=== PATIENT | female | born 1960 | race Caucasian/White ===

== ENCOUNTER → 2017-05-18 | Outpatient (CLI) | payer BC | END | disposition home or self-care (01) | LOC: NUC 09:27 | DX: M47.896 Other spondylosis, lumbar region (principal); M47.892 Other spondylosis, cervical region; M17.0 Bilateral primary osteoarthritis of knee; M19.071 Primary osteoarthritis, right ankle and foot; M19.072 Primary osteoarthritis, left ankle and foot; G89.29 Other chronic pain; Z98.890 Other specified postprocedural states; M70.60 Trochanteric bursitis, unspecified hip; S73.199A Other sprain of unspecified hip, initial encounter; M25.569 Pain in unspecified knee; Z86.69 Personal history of other diseases of the nervous system and sense organs; E66.01 Morbid (severe) obesity due to excess calories | CPT/HCPCS: 78315; A9503 ==